=== PATIENT | male | born 1985 | race Caucasian/White ===

== ENCOUNTER 2016-08-05 07:57 | Emergency (ER) | payer OTHER ==
[2016-08-05 09:13] VITALS: BP 141/89
== END 2016-08-05 09:13 | disposition home or self-care (01) ==
LOC: ED 07:57
DX: B02.9 Zoster without complications (principal); R03.0 Elevated blood-pressure reading, without diagnosis of hypertension

== ENCOUNTER 2018-02-12 13:09 | Inpatient (IN) | payer OTHER ==
[~2018-02-12] VITALS: Ht 180.3 cm; Wt 93.9 kg
[~2018-02-12 13:09] MED LIST: CLOPIDOGREL75 M1 PO; ECO81 PO; LIPI10 PO; LOV100I SC; NIT0.4 SL; RAN500A PO; TOP50 PO
[2018-02-12 13:13] VITALS: Ht 180.3 cm; Wt 93.9 kg
[2018-02-12 14:21] LABS: BASOPHIL % 0.4 % (0-2); RED CELL DISTRIBUTION WIDTH 13.1 % (11.5-14.5)
[2018-02-12 14:23] LABS: PLATELET COUNT 409 x10^3mcL (130-400)
[2018-02-12 14:53] LABS: CALCIUM 9.1 mg/dL (8.5-10.1); CARBON DIOXIDE 27.8 mmol/L (21-32); CHLORIDE SERUM 100 mmol/L (98-107); CREATININE SERUM 1.1 mg/dL (0.7-1.3); GFR1 > 60 mL/min; GLUCOSE SERUM 140 mg/dL (74-106); POTASSIUM SERUM 3.3 mmol/L (3.5-5.1); SODIUM SERUM 138 mmol/L (136-145)
[2018-02-12 14:56] LABS: FREE T4 1.1 ng/dL (0.76-1.46); FREE THYROXINE INDEX 2.7 ug/dL (1.4-4.5); T4(THYROXINE) 7.9 ug/dL (4.7-13.3)
[2018-02-12 15:02] LABS: ALBUMIN 3.7 g/dL (3.4-5.0); ALKALINE PHOSPHATASE 73 U/L (46-116); ALT/SGPT 26 U/L (16-63); AST/SGOT 21 U/L (15-37); BILIRUBIN TOTAL 0.6 mg/dL (0.20-1.00); C REACTIVE PROTEIN 0.6 mg/dL (<=0.9); TOTAL PROTEIN, SERUM 7.8 g/dL (6.4-8.2)
[2018-02-12 15:13] LABS: ERYTHROCYTE SED RATE 9 mm/hr (0-15)
[2018-02-12 15:17] LABS: microscopic required? NO
[2018-02-12 15:19] LABS: T3 TOTAL 1.36 ng/mL
[2018-02-12 15:31] LABS: urine erythrocyte NEGATIVE (NEGATIVE)
[2018-02-12 15:38] LABS: AMPHETAMINE QUAL UR POSITIVE (See below)
[2018-02-12 16:08] LABS: CK-MB 3.8 ng/mL (0-3.6)
[2018-02-12] MEDS ORDERED: LISINOPRIL2.5 MG (16:11)
[2018-02-12] MEDS ORDERED: TOPROL XL25 MG (16:11)
[2018-02-12 16:16] LABS: CHOLESTEROL/HDL RATIO 3.8; PHOSPHOROUS 1.5 mg/dL (2.5-4.9)
[2018-02-12 16:22] VITALS: BP 140/80
[2018-02-12] MEDS ORDERED: PLA75 (17:36)
[2018-02-12] MEDS ORDERED: ASPIR 8181 MG PO (17:37)
[2018-02-12] MEDS ORDERED: LIPITOR80 MG PO (17:37)
[2018-02-12 20:00] VITALS: BP 108/69
[2018-02-13 06:02] VITALS: BP 97/58
[2018-02-13 07:11] LABS: CALCIUM 8.3 mg/dL (8.5-10.1); CARBON DIOXIDE 28.4 mmol/L (21-32); CHLORIDE SERUM 105 mmol/L (98-107); CREATININE SERUM 0.9 mg/dL (0.7-1.3); GFR1 > 60 mL/min; GLUCOSE SERUM 94 mg/dL (74-106); MAGNESIUM 2.2 mg/dL (1.8-2.4); PHOSPHOROUS 3.5 mg/dL (2.5-4.9); SODIUM SERUM 138 mmol/L (136-145)
[2018-02-13 07:25] LABS: BASOPHIL % 0.3 % (0-2); PLATELET COUNT 369 x10^3mcL (130-400); RED CELL DISTRIBUTION WIDTH 13.1 % (11.5-14.5)
[2018-02-13] MEDS ORDERED: ISOSORBIDE MONO30 MG PO (08:01)
[2018-02-13 08:03] VITALS: BP 97/58
[2018-02-13] MEDS ORDERED: NIT0.4 SL (08:21)
[2018-02-13 08:30] VITALS: BP 107/67
== END 2018-02-13 09:16 | disposition home or self-care (01) | DRG 812 ==
LOC: ED 13:09 → DU 15:36
PROVIDERS: Internal Medicine; Specialist
DX: T43.621A Poisoning by amphetamines, accidental (unintentional), initial encounter (principal); E83.39 Other disorders of phosphorus metabolism; F17.290 Nicotine dependence, other tobacco product, uncomplicated; F10.10 Alcohol abuse, uncomplicated; F41.9 Anxiety disorder, unspecified; I10 Essential (primary) hypertension; I25.2 Old myocardial infarction; I25.10 Atherosclerotic heart disease of native coronary artery without angina pectoris; Z95.5 Presence of coronary angioplasty implant and graft; R06.4 Hyperventilation; Y90.9 Presence of alcohol in blood, level not specified; F12.10 Cannabis abuse, uncomplicated; Z79.899 Other long term (current) drug therapy; F15.10 Other stimulant abuse, uncomplicated; E78.5 Hyperlipidemia, unspecified; E87.6 Hypokalemia; Y92.89 Other specified places as the place of occurrence of the external cause
CPT/HCPCS: 36600; 84439; G0480; J2060; Q0092

== ENCOUNTER 2018-02-20 22:08 | Emergency (ER) | payer OTHER ==
[~2018-02-20] VITALS: Ht 180.3 cm; Wt 83.9 kg
[2018-02-20 22:08] VITALS: BP 118/66; Ht 180.3 cm; Wt 83.9 kg
[~2018-02-20 22:08] MED LIST changes: +ASPIR 8181 MG PO; +ISOSORBIDE MONO30 MG PO; +LIPITOR80 MG PO; +LISINOPRIL2.5 MG; +PLA75; +TOPROL XL25 MG
== END 2018-02-20 22:40 | disposition left against medical advice (07) ==
LOC: ED 22:08
DX: Z53.21 Procedure and treatment not carried out due to patient leaving prior to being seen by health care provider (principal)